=== PATIENT | male | born 1970 | race Caucasian/White ===

== ENCOUNTER → 2019-09-06 | Outpatient (CLI) | payer OTHER ==
[2019-09-06 17:53] LABS: PLATELET COUNT, AUTOMATED 284 10^3/uL (150-450)
[2019-09-06 18:01] LABS: INR 1.01
[2019-09-06 18:02] LABS: PARTIAL THROMBOPLASTIN TIME 32.9 SECONDS (25.0-38.4)
== END ==
LOC: M PLALAB 14:27
PROVIDERS: ATTEND Internal Medicine Pulmonary Disease
DX: R91.8 Other nonspecific abnormal finding of lung field (principal)

== ENCOUNTER → 2019-09-14 | Outpatient (CLI) | payer OTHER ==
[~2019-09-14] MED LIST: ATOR1TAB19 PO; BISO5TAB9 PO; LIDOCAINE 1% MDV 20ML VIAL As Ordered ONE; LOSA25TA14 PO; VITA100066 PO
--- NOTE | 2019-09-14 10:06 | REP ---
Post biopsy chest x-ray: Single view. History: Status post CT guided needle biopsy. Comparison study September 04, 2019.. 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 There is no evidence of pneumothorax or hydrothorax. Lung cloud are otherwise clear. Heart is not enlarged. Impression: No complication is identified. Electronically Signed by Satnam Chavez MD 09/14/2019 09:57 A
--- NOTE | 2019-09-14 12:13 | REP ---
CHEST SINGLE VIEW: Single view of the chest is performed 2 hours following left lung biopsy. No pneumothorax is seen. Left-sided mass is again visualized. IMPRESSION: No pneumothorax status post left lung biopsy. Electronically Signed by Eliel Garcia MD 09/14/2019 01:45 P
[2019-09-14 12:15] VITALS: BP 124/74
--- NOTE | 2019-09-14 19:09 | REP ---
CT-guided left lobe lung biopsy The procedure is performed by CHANTE Morales, under the direct supervision of Dr. Garcia. The risks and benefits of the procedure were explained to the patient and informed consent was obtained both orally and written. Directly prior to the start of the procedure, a formal timeout was done in the exam room. The left lung mass was localized using CT guidance. Skin was prepped and draped in the usual sterile fashion. 4 ml of 1% lidocaine 10 mg/ml was used as a local anesthetic. Using CT guidance a 19/20 gauge coaxial needle biopsy system was inserted and advanced into the nodule. 6 core biopsy samples were obtained and sent to the lab. CT images obtained directly after the biopsy show no evidence of pneumothorax. After the appropriate amount of monitored convalescence the patient was discharged from the department. Reviewed by CHANTE Pascal 09/14/2019 04:59 P Electronically Signed by Eliel Garcia MD 09/14/2019 05:12 P
--- NOTE | 2019-09-17 07:50 | ECHO ---
DATE OF PROCEDURE: 09/14/2019 DATE OF : 1970 AGE: 49 GENDER: Male. HEIGHT: 68 inches. WEIGHT: 185 pounds BODY SURFACE AREA: 1.98 m2 OUTPATIENT REFERRING PHYSICIAN: Dr. Adriana Dash INDICATION: Post lung biopsy. Hypertension. Abnormal EKG. MEASUREMENTS: 2-D Measurements: RV: 3.2 cm LV: 5.1 cm Septum: 1.0 cm Posterior wall: 1.0 cm Aortic root: 3.2 cm LA: 3.7 cm LVEF: 60% Doppler Measurements: AV: 1.0 m/s LVOT: 0.9 m/s LVOT diameter: 2.1 cm MV - E 6 A 55 EA ratio 1.2 Early mitral deceleration time: 208 ms E prime medial: 10.7 A prime medial: 13.5 E prime lateral: 12.6 PV: 0.95 m/s Pulmonary artery acceleration time: 120 ms RVSP: 25 mmHg IVC: 2.1 cm COMMENTS: Normal sinus rhythm without intraventricular conduction disturbance. M-mode and two-dimensional echocardiography was performed with pulsed, continuous wave, color flow and tissue Doppler studies. Normal left ventricular size, wall thickness and wall motion. Normal left atrial size and Doppler assessment of LV diastolic function and estimated mean left atrial pressure. Normal right heart chamber sizes and motion and estimated pulmonary arterial pressure. Normal IVC size and collapse against an elevated central venous pressure. Normal appearing and functioning valvular structures. Normal aortic root size. No apparent intracardiac mass or pericardial effusion.
== END ==
LOC: M IRPRO 07:57
PROVIDERS: ATTEND Internal Medicine Pulmonary Disease
DX: R84.6 Abnormal cytological findings in specimens from respiratory organs and thorax (principal); R91.8 Other nonspecific abnormal finding of lung field; I10 Essential (primary) hypertension

== ENCOUNTER → 2019-10-18 | Outpatient (CLI) | payer OTHER ==
[~2019-10-18] MED LIST changes: +BISO5TAB14 PO; -BISO5TAB9 PO; -LIDOCAINE 1% MDV 20ML VIAL As Ordered ONE
--- NOTE | 2019-10-18 14:44 | PFTRPT ---
Site: [facility], [address] [place] [address], [id number] ID: [id number] Name: MADI PARRY Visit Date: 10/18/2019 Second ID: [id number] Referring Doctor: Adriana Dash MD Reviewing Doctor: Lawrence Hardy MD Field Services Manager: Antione VIDES RRT Age: 49 : 1970 Sex: Male Race: Height: 68.00 Inches Weight: 185.00 Lbs BSA: 1.98 Order IDs: [id number] Requested Test(s): <RESP-PFT.PFT B/A> Diagnosis: R91.8 test meet the ATS standards for acceptability and repeatability. Pt was given four puffs of albuterol for postbronchodilator. Review Status: Not Reviewed Pre-Bronch Post-Bronch Pred Actual %Pred Actual %Chng SPIROMETRY FVC (L) 4.77 3.66 76 3.75 2 FEV1 (L) 3.73 2.98 79 3.11 4 FEV1/FVC (%) 78 81 104 83 1 FEF 25% (L/sec) 7.58 7.14 94 7.79 9 FEF 50% (L/sec) 4.99 3.61 72 4.17 15 FEF 75% (L/sec) 1.66 1.17 70 1.44 23 FEF 25-75% (L/sec) 3.37 2.90 85 3.40 17 FEF Max (L/sec) 9.46 8.16 86 8.23 FIVC (L) 3.51 3.67 4 FIF 50% (L/sec) 5.02 4.71 93 5.80 23 FIF Max (L/sec) 4.85 5.91 21 MVV (L/min) 148 111 75 Expiratory Time (sec) 7.32 6.12 -16 Back Extrap Vol (L) 0.13 0.15 8 Time To FEFmax (sec) 0.074 0.088 19 LUNG VOLUMES SVC (L) 4.66 3.71 79 IC (L) 3.25 3.09 95 ERV (L) 1.41 0.62 43 TGV (L) 3.30 2.75 83 RV (Pleth) (L) 1.89 2.13 112 TLC (Pleth) (L) 6.55 5.84 89 RV/TLC (Pleth) (%) 29 36 125 DIFFUSION DLCOunc (ml/min/mmHg) 30.27 25.56 84 DLCOcor (ml/min/mmHg) 30.27 26.50 87 DL/VA (ml/min/mmHg/L) 4.62 4.97 107 VA (L) 6.55 5.33 81 BHT (sec) 9.94 IVC (L) 3.68 TLC (SB) (L) 5.48 AIRWAYS RESISTANCE Raw (cmH2O/L/s) 1.45 1.17 80 Gaw (L/s/cmH2O) 1.03 0.87 84 sRaw (cmH2O*s) 4.76 3.13 65 sGaw (1/cmH2O*s) 0.20 0.32 161 BLOOD GASES Hgb (gm/dL) 13.4
== END ==
LOC: M CARPUL 14:08
PROVIDERS: ATTEND Internal Medicine Pulmonary Disease
DX: R91.8 Other nonspecific abnormal finding of lung field (principal)